=== PATIENT | female | born 1980 | race Caucasian/White ===

== ENCOUNTER 2017-03-05 15:23 | Observation (INO) ==
[2017-03-05] MEDS ORDERED: NITROGLYCERIN SL 0.4 MG TABLET SL PRN (15:44)
[2017-03-05] MEDS ORDERED: ENOXAPARIN 100 MG/ML SYRINGE SUBCUT STA (15:44)
[2017-03-05] MEDS ORDERED: ASPIRIN 325 MG TABLET PO STA (15:44)
[2017-03-05] MEDS ORDERED: NITROGLYCERIN 2% OINT 1 INCH/GM PACK TOP STA (15:44)
--- NOTE | 2017-03-05 16:03 | Emergency Department Note ---
Selvin Anaya Hilary, am scribing for, and in the presence of, Murphy Powers MD 15: 51. Priya Anaya James D, MD, personally performed the services described in this documentation, ascribed by Zaina Montalvo in my presence, and it is both accurate and complete [id number] . Arrival - Arrival Chief Complaint: Chest Pain Stated Complaint: chest pain, sweating, sob ED Nursing Triage Note: Pt c/o CP, SOB, and broke out into a sweat while at work. States she had a similar episode a few days ago. Mode of Arrival: Ambulatory Limitations: No Limitations Source: Patient, RN Notes Reviewed Time Seen by Provider: 03/05/17 15:40 - History of Present Illness HPI Narrative: Pt is a 36 y/o female presenting to the ED with c/o chest pain, SOB and diaphoresis which onset while at work. She reports having a similar episode a few days ago. Pt confirms chest pain, SOB and diaphoresis but denies nausea, melena or cough. No other complaints or problems stated in the ED. Her family member in the rooms reports that the last time it happened she was lifting heavy boxes. Onset (ago): hour(s) Consistency: intermittent Severity: moderate, similar to previous episodes Severity scale (1-10): 2 Quality: sharp Date of Last Menstrual Period: irregular Allergies/Adverse Reactions: Allergies Allergy/AdvReac Type Severity Reaction Status Date / Time No Known Allergies Allergy Verified 03/05/17 15:32 Home Medications: Home Medications Medication Instructions Recorded Confirmed Type No Known Home Medications [No 03/05/17 03/05/17 History Known Home Medications] Review of System - Review of System 12 point system: reviewed and no additional remarkable complaints except as stated - Review of System Constitutional: Present: weakness. Absent: fever Respiratory: Present: respiratory distress (SOB) Cardiovascular: Present: chest pain Gastrointestinal: Absent: nausea Neurological: Present: weakness Medical,Surgical,& Family Hx - Surgical History Abdominal Surgeries: Surgical HX of: Cholecystectomy - Social History Smoking Status: Never smoker Exam Vital Signs: Vital Signs Temperature 97.0 F L 03/05/17 15:32 Pulse Rate 84 03/05/17 15:32 Respiratory Rate 20 03/05/17 15:32 Blood Pressure 145/95 03/05/17 15:32 O2 Sat by Pulse Oximetry 98 03/05/17 15:32 GENERAL: This is a well-nourished well-developed white female, obese, in no apparent distress. VITAL SIGNS: Reviewed HEENT: Head is atraumatic and normocephalic. Pupils are equal round react to light. Extraocular movements are intact. Oropharynx is benign with moist mucous membranes. NECK: Neck is soft and supple without tenderness. There are no masses. There is no lymphadenopathy. LUNGS: Lungs are clear to auscultation. Chest rises symmetrically. There is no chest wall tenderness. CV: Heart is regular rate and rhythm without murmurs rubs or gallops. ABDOMEN: Abdomen is soft, nontender to palpation. There are no abdominal abnormal masses palpated. There is no organomegaly. Bowel sounds are present and active. SKIN: Skin is warm and dry. No rash. EXTREMITIES: Patient has full range of motion without tenderness. There is no pedal edema. NEUROLOGIC: Awake alert and oriented 4. Cranial nerves II through XII are grossly intact. Motor is 5 over 5 in all extremities bilaterally. Deep tendon reflexes are 2+ and bilaterally equal. - General General appearance: alert, in no apparent distress, obese - Head Head exam: Present: atraumatic, normocephalic - Eye Eye exam: Present: normal appearance, PERRL, EOMI - ENT ENT exam: Present: mucous membranes moist, TM's normal bilaterally. Absent: mucous membranes dry - Neck Neck exam: Present: full ROM, trachea midline. Absent: tenderness - Chest Chest inspection: Present: symmetric chest wall rise. Absent: tenderness - Respiratory Respiratory exam: Present: normal lung sounds bilaterally. Absent: respiratory distress - Cardiovascular Cardiovascular exam: Present: regular rate, normal rhythm, normal heart sounds. Absent: murmur, rubs, gallop - Abdominal Exam Abdominal exam: Present: soft, normal bowel sounds. Absent: distention, tenderness - Extremities Exam Extremities exam: Present: full ROM. Absent: tenderness - Back Exam Back exam: Present: full ROM. Absent: tenderness - Neurological Exam Neurological exam: Present: alert, oriented X3, CN II-XII intact. Absent: motor sensory deficit - Psychiatric Psychiatric exam: Present: normal affect, normal mood - Skin Skin exam: Present: warm, dry, intact, normal color. Absent: rash Results - Labs CBC & BMP: 03/05/17 16:03/05/17 16:09 Lab Results: I have reviewed the patients labs Labs: Laboratory Tests 03/05/17 16:09 WBC 11.3 RBC 5.07 Hgb 13.5 Hct 41.3 MCV 81.5 L Neut # (Auto) 7.7 H Laboratory Tests 03/05/17 03/05/17 03/05/17 16:09 16:09 16:09 INR 1.0 PT Patient/Control Mix 10.7 Circ Anticoag PTT 28.2 Sodium 140 Potassium 3.5 Chloride 107 Carbon Dioxide 26 Glucose 117 H Troponin I < 0.015 Albumin/Globulin Ratio 1.0 L - EKG EKG results: interpreted by ERMD - Impressions EKG: Normal sinus rhythm with rate of 84, low voltage QRS, normal ST-T waves. - Diagnostic Findings Procedure: Chest x-ray: report reviewed by me, image reviewed by me (No active cardiopulmonary disease.) Disposition Clinical Impression: Chest pain Case discussed with: patient Disposition: Still a Patient Condition: Stable Time of Disposition: 17:06
--- NOTE | 2017-03-05 16:12 | XRay Report ---
XR chest 2V Indication: Chest pain. Comparison: None. Technique: PA and lateral chest x-ray was performed. Findings: Heart size, mediastinal contour, and hilar structures demonstrate no significant abnormalities. The lung parenchyma is clear. Bones and soft tissues demonstrate no significant abnormalities. Impression: 1. No active cardiopulmonary disease. 03/05/2017 4:10 PM PROCEDURE INTERPRETED AT [facility] DEPARTMENT OF RADIOLOGY Final Report Signed by: Dr. Buck Howard
[2017-03-05 16:16] LABS: Basophils # 0.1 10*3/uL (0.0-0.2); Basophils % 0.8 % (0.0-0.8); Eosinophils # 0.3 10*3/uL (0.0-0.87); Eosinophils % 2.6 % (0.00-10.9); Hematocrit 41.3 VOL% (35.7-47.0); Hemoglobin 13.5 GM/DL (12.0-16.0); Immature Granulocytes % 0.6 %; Immature Granulocytes Absolute 0.07 #; Lymphocytes # 2.4 10*3/uL (1.4-4.0); Lymphocytes % 21.5 % (21.3-54.2); Mean Corpuscular HGB Conc 32.7 GM/DL (32-36); Mean Corpuscular Hemoglobin 27 PG (27-34); Mean Corpuscular Volume 81.5 FL (87-102); Mean Platelet Volume 10.9 FL (9.6-12.0); Monocytes # 0.7 10*3/uL (0.11-0.8); Monocytes % 6.5 % (1.7-12.7); Neutrophils # 7.7 10*3/uL (1.4-7.4); Platelet Count 249 T/CUMM (130-400); Red Blood Count 5.07 MC/CUMM (3.8-5.5); Red Cell Distribution Width 14.3 % (9.3-17.3); White Blood Count 11.3 T/CUMM (4-12)
[2017-03-05] MEDS ORDERED: ENOXAPARIN 100 MG/ML SYRINGE SUBCUT ONE (16:29)
[2017-03-05] MEDS ORDERED: ASPIRIN 325 MG TABLET ONE (16:29)
[2017-03-05] MEDS ORDERED: NITROGLYCERIN 2% OINT 1 INCH/GM PACK TOP ONE (16:29)
[2017-03-05] MEDS ORDERED: ENOXAPARIN 30 MG/0.3 ML SYRINGE ONE (16:30)
[2017-03-05 16:33] LABS: PT Patient Result 10.7 SECS; Partial Thromboplastin Time 28.2 SECS (0-40)
[2017-03-05 16:47] LABS: Albumin 3.5 G/DL (3.4-5.0); Bilirubin,Total 0.4 MG/DL (0.2-1.0); Calcium 8.7 MG/DL (8.5-10.1); Osmolality,Calculated 279.4 MOS/KG (273-304); Potassium 3.5 MMOL/L (3.5-5.1); Total Protein 6.9 G/DL (6.4-8.3)
--- NOTE | 2017-03-05 17:41 | Hospitalist History & Physical ---
Addendum entered and electronically signed by Isatu Ku NP 03/05/17 17: 49: Addendum to assessment: A 12 point review of systems has been performed on Ms. Nava. Original Note: <Isatu Ku - Last Filed: 03/05/17 17:32> Assessment and Plan (1) Chest pain Status: Acute Assessment and plan: Admit to monitored bed. Serial cardiac enzymes. Serial troponins. Consult cardiology. IVF. Order echo. History of Present Illness Chief complaint: chest pain History of present illness: Ms. Nava is a 36 year old obese female with a history of gall bladder removal that reports to the ED today with complaints of chest pain and shortness of breath. Patient states that while at work this afternoon she began to sweat profusely. This was followed by shortness of breath, sharp midsternal chest pain that radiated to her shoulder blade, and a faint feeling. Pt. states that the pain felt as if someone was poking her in her chest.Pt. 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 Patient states that she had to sit down. Her significant other was called and he came to pick her up. He is present at the bedside and reports that the patient "looked pale". She reported to the ED where she was examined in bed 19. Pt. states that this is the second time this has happen this week. She states on Friday that while unloading boxes at work, she felt a similar pain. Pt. denies any medical history outside of gall bladder removal. She does not smoke or drink; also denies illicit drug use. Pt. also denies family history of heart disease. Pt.'s case has been discussed with ER physician Dr. Powers and Dr. Benedict. She will be admitted to the hospitalist program over night for observation. Home Medications Medication Instructions Recorded Confirmed Type Nitrofurantoin Macrocrystals 50 mg PO QID #28 capsule 03/06/17 Rx [Macrodantin] Thyroid [[place] Thyroid] 60 mg PO DAILY@0700 #30 tablet 03/06/17 Rx Allergies Allergy/AdvReac Type Severity Reaction Status Date / Time No Known Allergies Allergy Verified 03/05/17 15:32 Medical,Surgical,& Family Hx - Surgical History Abdominal Surgeries: Surgical HX of: Cholecystectomy - Family History Family History: Reports;: Family Cancer, Family Diabetes - Social History Smoking Status: Never smoker Frequency of Alcohol Use: None Type of Drug Use: None Marital Status: Single Lives With:: Significant Other Functional capacity: independent ambulation - Constitutional Constitutional: Absent: chills, fever(s), night sweats - EENT Eyes: Present: requires corrective lense Ears: Absent: decreased hearing Nose, mouth and throat: Absent: headache(s) - Cardiovascular Cardiovascular: Present: chest pain at rest, chest pain with activity, dyspnea on exertion, edema - Respiratory Respiratory: Present: dyspnea on exertion. Absent: cough - Gastrointestinal Gastrointestinal: Absent: abdominal pain, nausea, vomiting - Genitourinary Genitourinary: Absent: difficulty urinating - Neurological Neurological: Absent: confusion, dizziness Exam - Constitutional Vitals: Period Temp Pulse Resp BP Sys/Dillard Pulse Ox Last 24 Hr 97.0 F 84 20 145/95 98 General appearance: no acute distress, over weight - Head Head exam: Present: normal inspection, normocephalic - Eye Eye exam: Present: EOMI Pupils: Present: JESUS - Neck Neck exam: Present: normal inspection - Respiratory Respiratory exam: Present: clear to auscultation bilaterally. Absent: wheezes - Cardiovascular Cardiovascular exam: Present: regular rate and rhythm - GI/Abdominal GI/Abdominal exam: Present: normal bowel sounds, tenderness (epigastric ), soft - Extremities Exam Extremities exam: Present: normal capillary refill, full ROM. Absent: edema - Neurological Exam Neurological exam: Present: alert, oriented X3 - Psychiatric Psychiatric exam: Present: normal affect, normal mood - Skin Skin exam: Present: normal color, warm, dry Results - Labs CBC & BMP: 03/05/17 16:09 03/05/17 16:09 Lab Results: I have reviewed the past 24 hour labs <Blake Benedict - Last Filed: 03/07/17 06:02> History of Present Illness History of present illness: Ms. Nava is a 36 year old female Exam - Constitutional Vitals: Period Temp Pulse Resp BP Sys/Dillard Pulse Ox Last 24 Hr 96.9 F-97.2 F 65-68 18-18 118-150/71-75 98-98 Results - Labs CBC & BMP: 03/06/17 05:02 03/06/17 05:02
[2017-03-05] MEDS ORDERED: ACETAMINOPHEN 325 MG TABLET PO PRN (20:27)
[2017-03-05] MEDS: SODIUM CHLORIDE 0.9% 1,000 ML IV SCH (21:53)
[2017-03-05 23:54] LABS: Apearance,Urine Clear (Clear); Bacteria,Urine Many /HPF (Few); Bilirubin,Urine Negative (Negative); Blood, Urine NEGATIVE (Negative); Glucose,Urine (UA) Negative (Negative); Ketones,Urine Negative (Negative); Mucus,Urine Few /LPF (Occasional); Nitrite,Urine Positive (Negative); Protein,Urine Negative; RBC,Urine 1 /HPF (0-4); Squamous Epithelial Cell,Urine Occasional /HPF (0-10); Urine Color Yellow (Yellow); Urine Specific Gravity 1.025 (1.001-1.035); WBC,Urine 6 /HPF (0-6)
[2017-03-05 23:55] LABS: Urine Urobilinogen < 2.0 EU/DL (0.2-1.0)
--- NOTE | 2017-03-06 06:05 | EKG Report ---
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
[2017-03-06 06:16] LABS: Basophils # 0.1 10*3/uL (0.0-0.2); Basophils % 0.8 % (0.0-0.8); Eosinophils # 0.3 10*3/uL (0.0-0.87); Eosinophils % 3.1 % (0.00-10.9); Hematocrit 40.6 VOL% (35.7-47.0); Hemoglobin 12.8 GM/DL (12.0-16.0); Immature Granulocytes % 0.7 %; Immature Granulocytes Absolute 0.07 #; Lymphocytes # 3.1 10*3/uL (1.4-4.0); Lymphocytes % 31.4 % (21.3-54.2); Mean Corpuscular HGB Conc 31.5 GM/DL (32-36); Mean Corpuscular Hemoglobin 26 PG (27-34); Mean Platelet Volume 11.2 FL (9.6-12.0); Monocytes # 0.6 10*3/uL (0.11-0.8); Monocytes % 6.3 % (1.7-12.7); Neutrophils # 5.7 10*3/uL (1.4-7.4); Neutrophils % 57.7 % (38.7-73.9); Platelet Count 251 T/CUMM (130-400); Red Blood Count 4.89 MC/CUMM (3.8-5.5); Red Cell Distribution Width 14.3 % (9.3-17.3); White Blood Count 9.9 T/CUMM (4-12)
[2017-03-06 06:54] LABS: Troponin I Only < 0.015 NG/ML (0.00-0.045)
[2017-03-06 06:57] LABS: Albumin 3.1 G/DL (3.4-5.0); Bilirubin,Total 0.5 MG/DL (0.2-1.0); Osmolality,Calculated 280.3 MOS/KG (273-304); Risk Ratio 3.26; Thyroid Stimulating Hormone 4.64 uIU/ml (0.358-3.74); Total Protein 5.8 G/DL (6.4-8.3)
--- NOTE | 2017-03-06 07:26 | EKG Report ---
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
--- NOTE | 2017-03-06 08:00 | EKG Report ---
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
[2017-03-06] MEDS ORDERED: PANTOPRAZOLE 40 MG TABLET PO SCH (09:00)
--- NOTE | 2017-03-06 10:18 | Cardiology Consult Note ---
Assessment and Plan (1) Chest pain Status: Acute Assessment and plan: The patient had some chest pain symptoms. Her initial screening in the hospital is benign. I would like to set her up for outpatient cardiac ischemic screen and will follow up with her right after this testing has been completed. Current Visit: Yes (2) Palpitations Status: Acute Assessment and plan: The patient's rhythm has been stable in the hospital. I would like to do a 30 day event recorder to make sure her symptoms were related to a transient cardiac arrhythmia. Current Visit: Yes (3) Hypothyroidism Status: Acute Assessment and plan: The patient has clinical symptoms of hypothyroid and an elevated TSH. I am going to start her on a low-dose of [place] Thyroid. I think she will feel better on a thyroid medication that has T3 in it. I will follow up on this with laboratory testing in the clinic. Current Visit: Yes (4) Morbid obesity Status: Acute Assessment and plan: We will work on the patient's diet and weight in clinic follow-up. Current Visit: Yes (5) Urinary tract infection Status: Acute Assessment and plan: The patient reports frequent urinary tract infections and mild dysuria. She has nitrite positive urine. I think would be best to go ahead and treat this, as her diaphoresis and feeling bad may have been related to a urinary tract infection. Current Visit: Yes History of Present Illness - Consult Narrative History of present illness: Ms. Nava is a 36 year old female with no significant past medical history. She reports having an episode yesterday of mild palpitations, diaphoresis, and fatigue. She had a sharp poking type chest pain in the center to left side of her chest. There were no specific exacerbating or relieving factors although this did happen while she was at work. She denies any syncope or presyncope. She has no cardiac risk factors such as hypertension, hyperlipidemia, diabetes, smoking, but does have a family history of coronary artery disease in her grandmother. She denies any previous cardiac history. During the episode she had a normal blood pressure with a pulse of 104. She denies any exertional angina. She does not have any exertional dyspnea. She does report profound fatigue. Her laboratory tests suggest mild hypothyroidism and I am going to initiate treatment for that. Her labs also suggest that she may have a mild urinary tract infection. She tells me that she gets these frequently so I think it would be appropriate to treat that as well. She was admitted to the hospital to rule out evidence of high risk cardiac disease. Her cardiac enzymes are negative. Her EKG shows no changes of cardiac ischemia. The patient denies any orthopnea, PND, or peripheral edema in general. She says that after she has been on her feet all day she will have some trace edema. She has not been on any long trips and does not have any risk factors for deep venous thrombosis/pulmonary embolus. Today she is feeling back to normal. In light of her low risk inpatient screening I think it is reasonable for her to be discharged home for outpatient evaluation. CC: Jef Grant MD - Home Medications and Allergies Home Medications: Home Medications Medication Instructions Recorded Confirmed Type No Known Home Medications [No 03/05/17 03/05/17 History Known Home Medications] Allergies/Adverse Reactions: Allergies Allergy/AdvReac Type Severity Reaction Status Date / Time No Known Allergies Allergy Verified 03/05/17 15:32 12 point system: reviewed and no additional remarkable complaints except as stated Medical,Surgical,& Family Hx - Surgical History Abdominal Surgeries: Surgical HX of: Cholecystectomy - Family History Family History: Reports;: Family Cancer (aunt-breast cancer), Family Diabetes ( uncle), Family Heart Disease (grandmother), Family Hypertension (father) - Social History Smoking Status: Never smoker Frequency of Alcohol Use: None Type of Drug Use: None Physical Examination Vital Signs Temp Pulse Resp BP Pulse Ox 97.0 F L 84 20 145/95 98 03/05/17 15:32 03/05/17 15:32 03/05/17 15:32 03/05/17 15:32 03/05/17 15:32 Exam: General: Appears well developed, morbidly obese, well nourished, no apparent distress HEENT: Normocephalic, atraumatic Neck: Supple Neck, Midline Trachea, No Bruit, No JVD Cardiac: Regular rhythm, No Murmur, no gallop, no rub Lungs: Clear to auscultation, No Wheeze, Rales, Rhonchi Neuro: Cranial Nerve 2-12 Intact, Motor Function Grossly Intact Abdomen: Soft, Active Bowel Sounds, No Masses, No Pulsations/Bruits Skin: Normal color, no rash Extremities: No Clubbing, No Cyanosis, No Edema, Normal Upper Extr. Pulses Musculoskeletal: No acute abnormality noted Psychiatric: The patient does not appear to be anxious or depressed Result/EKG - Labs CBC & BMP: 03/06/17 05:02 03/06/17 05:02 Lab Results: I have reviewed the past 24 hour labs Labs: Laboratory Results - last 24 hr 03/05/17 03/05/17 03/05/17 16:09 16:09 16:09 WBC 11.3 RBC 5.07 Hgb 13.5 Hct 41.3 MCV 81.5 L MCH 27 MCHC 32.7 RDW 14.3 Plt Count 249 MPV 10.9 Neut % (Auto) 68.0 Lymph % (Auto) 21.5 [place] % (Auto) 6.5 Eos % (Auto) 2.6 Baso % (Auto) 0.8 Neut # (Auto) 7.7 H Lymph # (Auto) 2.4 [place] # (Auto) 0.7 Eos # (Auto) 0.3 Baso # (Auto) 0.1 Immature Gran % 0.6 Nucleated RBC % 0.0 Immature Gran # 0.07 Nucleated RBCs # 0.00 Immature Plt Fraction 0.0 INR 1.0 PT Patient/Control Mix 10.7 Circ Anticoag PTT 28.2 Sodium 140 Potassium 3.5 Chloride 107 Carbon Dioxide 26 Anion Gap 10.5 BUN 12 Creatinine 1.00 GFR Calculation 101 BUN/Creatinine Ratio 12.00 Glucose 117 H Calculated Osmolality 279.4 Calcium 8.7 Total Bilirubin 0.40 AST 20 ALT 26 Alkaline Phosphatase 65 Total Creatine Kinase CK-MB (CK-2) Troponin I Total Protein 6.9 Albumin 3.5 Globulin 3.4 Albumin/Globulin Ratio 1.0 L Triglycerides Cholesterol LDL Cholesterol VLDL Cholesterol HDL Cholesterol Heart Disease Risk Ratio Free T4 TSH 3rd Generation Urine Color Urine Appearance Urine pH Ur Specific [place] Urine Protein Urine Glucose (UA) Urine Ketones Urine Blood Urine Nitrate Urine Bilirubin Urine Urobilinogen Urine Leukocytes Urine RBC Urine WBC Ur Squamous Epith Cells Urine Bacteria Urine Mucus Ur Culture Indicated? 03/05/17 03/05/17 03/05/17 16:09 20:04 21:22 WBC RBC Hgb Hct MCV MCH MCHC RDW Plt Count MPV Neut % (Auto) Lymph % (Auto) [place] % (Auto) Eos % (Auto) Baso % (Auto) Neut # (Auto) Lymph # (Auto) [place] # (Auto) Eos # (Auto) Baso # (Auto) Immature Gran % Nucleated RBC % Immature Gran # Nucleated RBCs # Immature Plt Fraction INR PT Patient/Control Mix Circ Anticoag PTT Sodium Potassium Chloride Carbon Dioxide Anion Gap BUN Creatinine GFR Calculation BUN/Creatinine Ratio Glucose Calculated Osmolality Calcium Total Bilirubin AST ALT Alkaline Phosphatase Total Creatine Kinase CK-MB (CK-2) Troponin I < 0.015 < 0.015 < 0.015 Total Protein Albumin Globulin Albumin/Globulin Ratio Triglycerides Cholesterol LDL Cholesterol VLDL Cholesterol HDL Cholesterol Heart Disease Risk Ratio Free T4 TSH 3rd Generation Urine Color Urine Appearance Urine pH Ur Specific [place] Urine Protein Urine Glucose (UA) Urine Ketones Urine Blood Urine Nitrate Urine Bilirubin Urine Urobilinogen Urine Leukocytes Urine RBC Urine WBC Ur Squamous Epith Cells Urine Bacteria Urine Mucus Ur Culture Indicated? 03/05/17 03/06/17 03/06/17 23:20 05:02 05:02 WBC 9.9 RBC 4.89 Hgb 12.8 Hct 40.6 MCV 83.0 L MCH 26 L MCHC 31.5 L RDW 14.3 Plt Count 251 MPV 11.2 Neut % (Auto) 57.7 Lymph % (Auto) 31.4 [place] % (Auto) 6.3 Eos % (Auto) 3.1 Baso % (Auto) 0.8 Neut # (Auto) 5.7 Lymph # (Auto) 3.1 [place] # (Auto) 0.6 Eos # (Auto) 0.3 Baso # (Auto) 0.1 Immature Gran % 0.7 Nucleated RBC % 0.0 Immature Gran # 0.07 Nucleated RBCs # 0.00 Immature Plt Fraction 0.0 INR PT Patient/Control Mix Circ Anticoag PTT Sodium 141 Potassium 4.0 Chloride 107 Carbon Dioxide 29 Anion Gap 9.0 BUN 12 Creatinine 0.80 GFR Calculation 141 BUN/Creatinine Ratio 15.00 Glucose 106 Calculated Osmolality 280.3 Calcium 8.0 L Total Bilirubin 0.50 AST 13 ALT 27 Alkaline Phosphatase 60 Total Creatine Kinase CK-MB (CK-2) Troponin I Total Protein 5.8 L Albumin 3.1 L Globulin 2.7 Albumin/Globulin Ratio 1.1 Triglycerides 160 H Cholesterol 124 LDL Cholesterol 67.0 VLDL Cholesterol 32.0 HDL Cholesterol 38 L Heart Disease Risk Ratio 3.26 Free T4 TSH 3rd Generation 4.640 H Urine Color Yellow Urine Appearance Clear Urine pH 6.0 Ur Specific [place] 1.025 Urine Protein Negative Urine Glucose (UA) Negative Urine Ketones Negative Urine Blood Negative Urine Nitrate Positive H Urine Bilirubin Negative Urine Urobilinogen < 2.0 H Urine Leukocytes Negative Urine RBC 1 Urine WBC 6 Ur Squamous Epith Cells Occasional Urine Bacteria Many Urine Mucus Few Ur Culture Indicated? Results to follow 03/06/17 03/06/17 05:02 05:02 WBC RBC Hgb Hct MCV MCH MCHC RDW Plt Count MPV Neut % (Auto) Lymph % (Auto) [place] % (Auto) Eos % (Auto) Baso % (Auto) Neut # (Auto) Lymph # (Auto) [place] # (Auto) Eos # (Auto) Baso # (Auto) Immature Gran % Nucleated RBC % Immature Gran # Nucleated RBCs # Immature Plt Fraction INR PT Patient/Control Mix Circ Anticoag PTT Sodium Potassium Chloride Carbon Dioxide Anion Gap BUN Creatinine GFR Calculation BUN/Creatinine Ratio Glucose Calculated Osmolality Calcium Total Bilirubin AST ALT Alkaline Phosphatase Total Creatine Kinase 76 CK-MB (CK-2) 1.0 Troponin I < 0.015 Total Protein Albumin Globulin Albumin/Globulin Ratio Triglycerides Cholesterol LDL Cholesterol VLDL Cholesterol HDL Cholesterol Heart Disease Risk Ratio Free T4 0.93 TSH 3rd Generation Urine Color Urine Appearance Urine pH Ur Specific [place] Urine Protein Urine Glucose (UA) Urine Ketones Urine Blood Urine Nitrate Urine Bilirubin Urine Urobilinogen Urine Leukocytes Urine RBC Urine WBC Ur Squamous Epith Cells Urine Bacteria Urine Mucus Ur Culture Indicated? - EKG EKG results: interpreted by me
--- NOTE | 2017-03-06 11:06 | Discharge Summary ---
Hospital Course - Hospital Course Hospital Course: 36 y/o with morbid obesity admitted with chest pain and shortness of breath. She was admitted to the hospitalist service for acute coronary syndrome rule out. Serial troponins were negative. Cardiology was consulted. She will be scheduled for outpatient cardiac ischemic screen with cardiology follow-up. Cardiology also started her on [place] Thyroid for an elevated TSH, normal free T4. Her urinalysis was noted to be positive for nitrates with no leukocytes. She will be discharged on an antibiotic regimen. She has now reached maximal benefit of inpatient stay and will be discharged to home. - Time spent with patient Time with patient DS: Less than 30 minutes Diagnosis - Discharge Diagnosis (1) Chest pain Status: Resolved (2) Palpitations Status: Resolved (3) Morbid obesity Status: Chronic (4) Urinary tract infection Status: Resolved Specialty Discharge - Follow Up or Referrals Follow up with: Kalia Cuevas MD [Physician] - (SCHEDULE PATIENT FOR NUCLEAR STRESS TEST AT [facility] WITHIN ONE WEEK. FOLLOW UP WITH DR CUEVAS IN 2 WEEKS WITH EKG. ) Discharge Plan - Discharge Data Disposition: Disch To Home/Self Care Condition at Discharge: Stable Discharge Diet: heart healthy Activity: increase activity as tolerated Hygiene: no restrictions Weight Bearing at Discharge: weight bear as tolerated Driving: no restrictions Contact your physician if you experience:: Shortness of breath - Discharge Medications New Thyroid [[place] Thyroid] 60 mg PO DAILY@0700 #30 tablet Nitrofurantoin Macrocrystals [Macrodantin] 50 mg PO QID #28 capsule - Follow Up or Referral Follow Up: Kalia Cuevas MD [Physician] - (SCHEDULE PATIENT FOR NUCLEAR STRESS TEST AT [facility] WITHIN ONE WEEK. FOLLOW UP WITH DR CUEVAS IN 2 WEEKS WITH EKG. ) - Forms/Instructions Exam - Constitutional Vitals: Period Temp Pulse Resp BP Sys/Dillard Pulse Ox Last 24 Hr 96.9 F-97.6 F 65-84 18-20 96-145/51-95 98-100 General appearance: morbidly obese - Head Head exam: Present: normocephalic, atraumatic - Eye Eye exam: Present: EOMI Pupils: Present: JESUS - ENT ENT exam: Present: normal exam - Neck Neck exam: Present: normal inspection - Respiratory Respiratory exam: Present: clear to auscultation bilaterally. Absent: rhonchi, wheezes - Cardiovascular Cardiovascular exam: Present: regular rate and rhythm - GI/Abdominal GI/Abdominal exam: Present: normal bowel sounds, soft. Absent: tenderness, rebound - Extremities Exam Extremities exam: Present: normal inspection - Back Exam Back exam: Present: normal inspection - Neurological Exam Neurological exam: Present: alert, oriented X3 - Psychiatric Psychiatric exam: Present: normal affect, normal mood - Skin Skin exam: Present: warm, intact Discharge Results Procedures and tests throughout hospitalization: Pending Orders 03/05/17 Urine Culture Routine Labs on day of discharge: Labs from last 24 hours 03/06/17 03/06/17 03/06/17 05:02 05:02 05:02 WBC RBC Hgb Hct MCV MCH MCHC RDW Plt Count MPV Neut % (Auto) Lymph % (Auto) [place] % (Auto) Eos % (Auto) Baso % (Auto) Neut # (Auto) Lymph # (Auto) [place] # (Auto) Eos # (Auto) Baso # (Auto) Immature Gran % Nucleated RBC % Immature Gran # Nucleated RBCs # Immature Plt Fraction INR PT Patient/Control Mix Circ Anticoag PTT Sodium 141 Potassium 4.0 Chloride 107 Carbon Dioxide 29 Anion Gap 9.0 BUN 12 Creatinine 0.80 GFR Calculation 141 BUN/Creatinine Ratio 15.00 Glucose 106 Calculated Osmolality 280.3 Calcium 8.0 L Total Bilirubin 0.50 AST 13 ALT 27 Alkaline Phosphatase 60 Total Creatine Kinase 76 CK-MB (CK-2) 1.0 Troponin I < 0.015 Total Protein 5.8 L Albumin 3.1 L Globulin 2.7 Albumin/Globulin Ratio 1.1 Triglycerides 160 H Cholesterol 124 LDL Cholesterol 67.0 VLDL Cholesterol 32.0 HDL Cholesterol 38 L Heart Disease Risk Ratio 3.26 Free T4 0.93 TSH 3rd Generation 4.640 H Urine Color Urine Appearance Urine pH Ur Specific [place] Urine Protein Urine Glucose (UA) Urine Ketones Urine Blood Urine Nitrate Urine Bilirubin Urine Urobilinogen Urine Leukocytes Urine RBC Urine WBC Ur Squamous Epith Cells Urine Bacteria Urine Mucus Ur Culture Indicated? 03/06/17 03/05/17 03/05/17 05:02 23:20 21:22 WBC 9.9 RBC 4.89 Hgb 12.8 Hct 40.6 MCV 83.0 L MCH 26 L MCHC 31.5 L RDW 14.3 Plt Count 251 MPV 11.2 Neut % (Auto) 57.7 Lymph % (Auto) 31.4 [place] % (Auto) 6.3 Eos % (Auto) 3.1 Baso % (Auto) 0.8 Neut # (Auto) 5.7 Lymph # (Auto) 3.1 [place] # (Auto) 0.6 Eos # (Auto) 0.3 Baso # (Auto) 0.1 Immature Gran % 0.7 Nucleated RBC % 0.0 Immature Gran # 0.07 Nucleated RBCs # 0.00 Immature Plt Fraction 0.0 INR PT Patient/Control Mix Circ Anticoag PTT Sodium Potassium Chloride Carbon Dioxide Anion Gap BUN Creatinine GFR Calculation BUN/Creatinine Ratio Glucose Calculated Osmolality Calcium Total Bilirubin AST ALT Alkaline Phosphatase Total Creatine Kinase CK-MB (CK-2) Troponin I < 0.015 Total Protein Albumin Globulin Albumin/Globulin Ratio Triglycerides Cholesterol LDL Cholesterol VLDL Cholesterol HDL Cholesterol Heart Disease Risk Ratio Free T4 TSH 3rd Generation Urine Color Yellow Urine Appearance Clear Urine pH 6.0 Ur Specific [place] 1.025 Urine Protein Negative Urine Glucose (UA) Negative Urine Ketones Negative Urine Blood Negative Urine Nitrate Positive H Urine Bilirubin Negative Urine Urobilinogen < 2.0 H Urine Leukocytes Negative Urine RBC 1 Urine WBC 6 Ur Squamous Epith Cells Occasional Urine Bacteria Many Urine Mucus Few Ur Culture Indicated? Results to follow 03/05/17 03/05/17 03/05/17 20:04 16:09 16:09 WBC 11.3 RBC 5.07 Hgb 13.5 Hct 41.3 MCV 81.5 L MCH 27 MCHC 32.7 RDW 14.3 Plt Count 249 MPV 10.9 Neut % (Auto) 68.0 Lymph % (Auto) 21.5 [place] % (Auto) 6.5 Eos % (Auto) 2.6 Baso % (Auto) 0.8 Neut # (Auto) 7.7 H Lymph # (Auto) 2.4 [place] # (Auto) 0.7 Eos # (Auto) 0.3 Baso # (Auto) 0.1 Immature Gran % 0.6 Nucleated RBC % 0.0 Immature Gran # 0.07 Nucleated RBCs # 0.00 Immature Plt Fraction 0.0 INR PT Patient/Control Mix Circ Anticoag PTT Sodium Potassium Chloride Carbon Dioxide Anion Gap BUN Creatinine GFR Calculation BUN/Creatinine Ratio Glucose Calculated Osmolality Calcium Total Bilirubin AST ALT Alkaline Phosphatase Total Creatine Kinase CK-MB (CK-2) Troponin I < 0.015 < 0.015 Total Protein Albumin Globulin Albumin/Globulin Ratio Triglycerides Cholesterol LDL Cholesterol VLDL Cholesterol HDL Cholesterol Heart Disease Risk Ratio Free T4 TSH 3rd Generation Urine Color Urine Appearance Urine pH Ur Specific [place] Urine Protein Urine Glucose (UA) Urine Ketones Urine Blood Urine Nitrate Urine Bilirubin Urine Urobilinogen Urine Leukocytes Urine RBC Urine WBC Ur Squamous Epith Cells Urine Bacteria Urine Mucus Ur Culture Indicated? 03/05/17 03/05/17 16:09 16:09 WBC RBC Hgb Hct MCV MCH MCHC RDW Plt Count MPV Neut % (Auto) Lymph % (Auto) [place] % (Auto) Eos % (Auto) Baso % (Auto) Neut # (Auto) Lymph # (Auto) [place] # (Auto) Eos # (Auto) Baso # (Auto) Immature Gran % Nucleated RBC % Immature Gran # Nucleated RBCs # Immature Plt Fraction INR 1.0 PT Patient/Control Mix 10.7 Circ Anticoag PTT 28.2 Sodium 140 Potassium 3.5 Chloride 107 Carbon Dioxide 26 Anion Gap 10.5 BUN 12 Creatinine 1.00 GFR Calculation 101 BUN/Creatinine Ratio 12.00 Glucose 117 H Calculated Osmolality 279.4 Calcium 8.7 Total Bilirubin 0.40 AST 20 ALT 26 Alkaline Phosphatase 65 Total Creatine Kinase CK-MB (CK-2) Troponin I Total Protein 6.9 Albumin 3.5 Globulin 3.4 Albumin/Globulin Ratio 1.0 L Triglycerides Cholesterol LDL Cholesterol VLDL Cholesterol HDL Cholesterol Heart Disease Risk Ratio Free T4 TSH 3rd Generation Urine Color Urine Appearance Urine pH Ur Specific [place] Urine Protein Urine Glucose (UA) Urine Ketones Urine Blood Urine Nitrate Urine Bilirubin Urine Urobilinogen Urine Leukocytes Urine RBC Urine WBC Ur Squamous Epith Cells Urine Bacteria Urine Mucus Ur Culture Indicated? DS: Provider Date of admission: 03/05/17 17:07 Primary care physician: . No PCP Attending physician on admission: Blake Benedict MD Consults: 03/05/17 20:27 Consult to Physician [CONS] Routine Comment: chest pain Consulting Provider: Kalia Cuevas Consult to Specialist Group: Cardiology Person Notified: Zaida Date Notified: 03/06/17 Time Notified: 08:00 Discharging clinician: Jef Grant MD
[2017-03-06] MEDS: SODIUM CHLORIDE 0.9% 1,000 ML IV SCH (11:53)
[2017-03-06 12:03] VITALS: BP 150/75
[2017-03-06] MEDS ORDERED: NITROFURANTOIN MACROCRYSTALS 50 MG CAPSULE PO SCH (13:00)
--- NOTE | 2017-03-06 17:39 | ECHO Report ---
[facility] Nava Exam Date: 03/06/2017 08:02 Referring Physician: Technologist: Juliane Wood LUNA Age: 36 Ht (in): 67 Wt (lb): 295 Gender: F Exam Location: [facility] ([place]) Echo Indications: Chest pain, unspecified, Shortness of breath BP: 126 / 65 HR: 66 Rhythm: Sinus Technical Quality: Technically difficult study IMPRESSIONS Technically difficult study. Left ventricular ejection fraction is estimated at 60 %. Mild left ventricular hypertrophy. Trace mitral valve regurgitation. Trace tricuspid valve regurgitation. MEASUREMENTS (Male / Female) Normal Values 2D ECHO LV Diastolic Diameter PLAX 5.0 cm 4.2 - 5.9 / 3.9 - 5.3 cm LV Systolic Diameter PLAX 3.5 cm LV Fractional Shortening PLAX 30.5 % IVS Diastolic Thickness 1.5 cm 0.6 - 1.0 / 0.6 - 0.9 cm LVPW Diastolic Thickness 1.5 cm 0.6 - 1.0 / 0.6 - 0.9 cm RV Internal Dim ED PLAX 2.9 cm Aortic Root Diameter 3.6 cm LA Systolic Diameter LX 4.4 cm 3.0 - 4.0 / 2.7 - 3.8 cm DOPPLER TR Peak Velocity 274.0 cm/s TR Peak Gradient 30.0 mmHg FINDINGS Left Ventricle Normal left ventricular cavity size. Mild left ventricular hypertrophy. Left ventricular ejection fraction is estimated at 60 %. Right Ventricle The right ventricle is normal in size and function. Right Atrium The right atrium is normal in size. Left Atrium The left atrium is normal in size. Mitral Valve Morphologically normal mitral valve. Trace mitral valve regurgitation. Aortic Valve Morphologically normal aortic valve without significant sclerosis or stenosis. There is no aortic regurgitation. Tricuspid Valve Morphologically normal tricuspid valve. Trace tricuspid valve regurgitation. Tricuspid regurgitation velocities suggest a PAP of 40 mmHg. Pulmonic Valve Morphologically normal pulmonic valve without significant stenosis. There is no pulmonic regurgitation. Pericardium Normal pericardium without effusion. Aorta Normal ascending aorta dimension. Kalia Cuevas (Electronically Signed) Final Date: 06 March 2017 17:37
[2017-03-07] MEDS ORDERED: THYROID 60 MG TABLET PO SCH (07:00)
== END 2017-03-06 12:03 | disposition home or self-care (01) ==
LOC: N.ED 15:23 → INTOOBSV 17:07 → N.EDINP 17:07 → SUATTDRO 17:07 → N.TELEN 19:06
PROVIDERS: ADMIT Internal Medicine; ATTEND Internal Medicine